=== PATIENT | female | born 1985 | race Caucasian/White ===

== ENCOUNTER 2023-06-15 12:54 | Emergency (ER) | payer SELFPAY ==
[2023-06-15] MEDS ORDERED: Dexamethasone 4 mg/ml Vial ONE (13:20)
[2023-06-15] MEDS ORDERED: Ipratropium/Albuterol 3 ML NEB ONE (13:34)
[2023-06-15 15:33] LABS: SARS-CoV-2 NAA Rapid Test Not Detected (NotDetected)
== END 2023-06-15 15:35 | disposition home or self-care (01) ==
LOC: ERS 12:54
DX: J45.901 Unspecified asthma with (acute) exacerbation (principal)
CPT/HCPCS: 71045; 94640; 94760; J1100; J7620